=== PATIENT | female | born 1960 | race African-American/Black ===

== ENCOUNTER 2017-12-25 12:46 | Emergency (ER) | payer OTHER ==
[2017-12-25 13:06] VITALS: BP 157/85; PULSE 64; TEMP 98; BMI 24.1
--- NOTE | 2017-12-25 13:34 | PDOC ---
History of Present Illness - General Chief Complaint: Pain, Acute Stated Complaint: LT LEG PAIN, ARM NUMBNESS Time Seen by Provider: 12/25/17 13:32 History Source: Patient Exam Limitations: No Limitations - History of Present Illness Initial Comments: 12/25/17 13:36 Best Contact:[phone] PCP:Dr. Encinas Pmhx: Chronic neck and back pain, hypertension, herniated nuclear pulposus to the low back, pinched nerve Pshx: Total vaginal hysterectomy Allergies: Sulfa/rash FH:N/A Social Hx: Ciarettes/ 5 cigarettes per day Alcohol/ 0 Drugs/ marijuana LMP: [facility] 57-year-old female presents to the emergency department complaining of left- sided neck, low back pain 8 years. Patient states approximately 5 days ago she ran out of Motrin and was feeling 5/10 dull discomfort intermittently radiating down her left arm to her thumb and index finger. Patient was also complaining of low back pain which intermittently goes down her lateral leg but with rest, the pain subsides. Patient states the symptoms has been chronic for many many years. Patient has no new symptoms. As an affect, patient states the pain is a bit better from years ago. Patient denies headache, dizziness, lightheadedness, facial pain/droop, neck stiffness, chest pain, shortness of breath, abdominal pains, extremity numbness or tingling sensation. Patient states she's ambulating and exercising without any difficulties. 12/25/17 13:39 Past History - Past Medical History Allergies/Adverse Reactions: Allergies Allergy/AdvReac Type Severity Reaction Status Date / Time Sulfa (Sulfonamide Allergy Unknown Verified 12/25/17 13:07 Antibiotics) Anemia: No Asthma: No Cancer: No Cardiac Disorders: No CVA: No COPD: No CHF: No Dementia: No Diabetes: No GI Disorders: No Disorders: No HTN: No Hypercholesterolemia: Yes (non compliant) Liver Disease: No Seizures: No Thyroid Disease: No Other medical history: herniated discs. back problems. - Surgical History Abdominal Surgery: Yes (HYSTERECTOMY, tonsilectomy, right hand sx) Appendectomy: Yes Cardiac Surgery: No Cholecystectomy: No Lung Surgery: No Neurologic Surgery: No Orthopedic Surgery: (RIGHT HAND SX) - Immunization History Immunization Up to Date: No - Suicide/Smoking/Psychosocial Hx Smoking History: Current every day smoker Have you smoked in the past 12 months: No Number of Cigarettes Smoked Daily: 10 Information on smoking cessation initiated: No Hx Alcohol Use: No Drug/Substance Use Hx: No Substance Use Type: Cocaine, Marijuana Hx Substance Use Treatment: No Review of Systems - Review of Systems Able to Perform ROS?: Yes Comments:: 12/25/17 13:35 CONSTITUTIONAL: Absent: fever, chills, diaphoresis, generalized weakness, malaise, loss of appetite HEENT: Absent: rhinorrhea, nasal congestion, throat pain, throat swelling, difficulty swallowing, mouth swelling, ear pain, eye pain, visual Changes CARDIOVASCULAR: Absent: chest pain, loss of consciousness, palpitations, irregular heart rate, peripheral edema RESPIRATORY: Absent: cough, shortness of breath, dyspnea with exertion, orthopnea, wheezing, stridor, hemoptysis GASTROINTESTINAL: Absent: abdominal pain, abdominal distension, nausea, vomiting, diarrhea, constipation, melena, hematochezia GENITOURINARY: Absent: dysuria, frequency, urgency, hesitancy, hematuria, flank pain, genital pain MUSCULOSKELETAL: +Chronic left sided neck pain Chronic left sided back pain with sciatica Absent: myalgia, arthralgia, joint swelling SKIN: Absent: rash, itching, pallor HEMATOLOGIC/IMMUNOLOGIC: Absent: easy bleeding, easy bruising, lymphadenopathy, frequent infections ENDOCRINE: Absent: unexplained weight gain, unexplained weight loss, heat intolerance, cold intolerance NEUROLOGIC: Absent: headache, focal weakness or paresthesias, dizziness, unsteady gait, seizure, mental status changes, bladder or bowel incontinence PSYCHIATRIC: Absent: anxiety, depression, suicidal or homicidal ideation, hallucinations. Is the patient limited Cambodian proficient: No *Physical Exam - Vital Signs Last Vital Signs Temp Pulse Resp BP Pulse Ox 98.0 F 64 18 157/85 100 12/25/17 13:00 12/25/17 13:00 12/25/17 13:00 12/25/17 13:00 12/25/17 13:00 - Physical Exam Comments: 12/25/17 13:35 GENERAL: Well developed, well nourished. Awake and alert. No acute distress. HEENT: Normocephalic, atraumatic. PERRLA, EOMI. No conjunctival pallor. Sclera are non- icteric. Moist mucous membranes. Oropharynx is clear. NECK: Supple. Full ROM. No JVD. Carotid pulses 2+ and symmetric, without bruits. No thyromegaly. No lymphadenopathy. CARDIOVASCULAR: Regular rate and rhythm. No murmurs, rubs, or gallops. Distal pulses are 2+ and symmetric. PULMONARY: No evidence of respiratory distress. Lungs clear to auscultation bilaterally. No wheezing, rales or rhonchi. ABDOMINAL: Soft. Non-tender. Non-distended. No rebound or guarding. No organomegaly. Normoactive bowel sounds. MUSCULOSKELETAL Normal range of motion at all joints. No bony deformities or tenderness. No CVA tenderness. EXTREMITIES: Neg SLR No cyanosis. No clubbing. No edema. No calf tenderness. SKIN: Warm and dry. Normal capillary refill. No rashes. No jaundice. NEUROLOGICAL: Alert, awake, appropriate. Cranial nerves 2-12 intact. No deficits to light touch and temperature in face, upper extremities and lower extremities. No motor deficits in the in face, upper extremities and lower extremities. Normoreflexic in the upper and lower extremities. Normal speech. Toes are down- going bilaterally. Gait is normal without ataxia. PSYCHIATRIC: Cooperative. Good eye contact. Appropriate mood and affect. *DC/Admit/Observation/Transfer Diagnosis at time of Disposition: Chronic neck and back pain - Discharge Dispostion Disposition: HOME Condition at time of disposition: Stable Decision to Admit order: No - Referrals Referrals: Nohemi Cruz MD [Primary Care Provider] - Rhett Enamorado MD [Staff Physician] - - Patient Instructions Printed Discharge Instructions: Managing Chronic Low Back Pain, DI for Chronic Neck Pain Additional Instructions: Ice; 20 mins on alternating with 20 mins off for 48 hours while awake. Rest Follow up with your orthopedic surgeon or the one listed on the discharge form. Return to the ER for severe/persistent/worsening symptoms, extremity numbness/ tingling sensation. - Post Discharge Activity
== END 2017-12-25 13:40 | disposition home or self-care (01) ==
LOC: JERFT 12:46
DX: M54.2 Cervicalgia (principal); M54.9 Dorsalgia, unspecified; G89.29 Other chronic pain; I10 Essential (primary) hypertension; M51.26 Other intervertebral disc displacement, lumbar region
CPT/HCPCS: 99281-25

== ENCOUNTER 2019-01-27 15:14 | Emergency (ER) | payer OTHER ==
[2019-01-27 15:34] VITALS: BP 141/81; PULSE 67; TEMP 98.1; BMI 20.6
--- NOTE | 2019-01-27 15:35 | PDOC ---
Rapid Medical Evaluation Chief Complaint: Eye Problem Time Seen by Provider: 01/27/19 15:30 Medical Evaluation: Allergies Allergy/AdvReac Type Severity Reaction Status Date / Time Sulfa (Sulfonamide Allergy Unknown Verified 12/25/17 13:07 Antibiotics) 01/27/19 15:33 Patient c/o: feels as something in her left eye, denies visual changes or injury /contact use to eye Patient on brief exam: mild scleral erythema, + tearing Patient ordered for: none Patient to proceed to the ED Discharge Disposition - Diagnosis Irritation of eye - Discharge Dispostion Condition at time of disposition: Stable - Referrals - Patient Instructions - Post Discharge Activity
[2019-01-27] MEDS ORDERED: FLUORESCEIN NA 1 EA STRIP OS ONE (15:49)
--- NOTE | 2019-01-27 16:02 | PDOC ---
History of Present Illness - General Chief Complaint: Eye Problem Stated Complaint: LT. EYE PAIN Time Seen by Provider: 01/27/19 15:30 History Source: Patient Exam Limitations: Clinical Condition - History of Present Illness Initial Comments: 01/27/19 15:57 Past medical history present with complaint of left eye foreign body sensation since yesterday and patient does not know what went into her eye area and denies any trauma or injury to eye. Patient report corrective lense use but denies contact lenses use. Denies blurry vision or change in vision Timing/Duration: 24 hours Past History - Past Medical History Allergies/Adverse Reactions: Allergies Allergy/AdvReac Type Severity Reaction Status Date / Time Sulfa (Sulfonamide Allergy Unknown Verified 12/25/17 13:07 Antibiotics) Home Medications: Ambulatory Orders Amlodipine Besylate [Norvasc -] 5 mg PO DAILY 12/25/17 Atorvastatin Ca [Lipitor] 20 mg NR ASDIR 12/25/17 Gabapentin 300 mg PO ASDIR 12/25/17 Ofloxacin 0.3% Ophth Soln [Ocuflox -] 2 drop OP Q6H 5 Days #1 bottle 01/27/19 Anemia: No Asthma: No Cancer: No Cardiac Disorders: No CVA: No COPD: No CHF: No Dementia: No Diabetes: No GI Disorders: No Disorders: No HTN: No Hypercholesterolemia: Yes (non compliant) Liver Disease: No Seizures: No Thyroid Disease: No - Surgical History Abdominal Surgery: Yes (HYSTERECTOMY, tonsilectomy, right hand sx) Appendectomy: Yes Cardiac Surgery: No Cholecystectomy: No Lung Surgery: No Neurologic Surgery: No Orthopedic Surgery: (RIGHT HAND SX) - Immunization History Immunization Up to Date: No - Suicide/Smoking/Psychosocial Hx Smoking History: Current every day smoker Have you smoked in the past 12 months: Yes Number of Cigarettes Smoked Daily: 5 Information on smoking cessation initiated: No Hx Alcohol Use: No Drug/Substance Use Hx: No Substance Use Type: Cocaine, Marijuana Hx Substance Use Treatment: No Review of Systems - Review of Systems Able to Perform ROS?: Yes Is the patient limited Austrian proficient: No Constitutional: No: Fever, Night Sweats HEENTM: Yes: Symptoms Reported, See HPI, Eye Pain (left eye), Tearing (left eye) . No: Recent change in vision, Double Vision, Cataracts Respiratory: No: Symptoms reported Cardiac (ROS): No: Symptoms Reported ABD/GI: No: Nausea, Vomiting Neurological: No: Headache, Dizziness All Other Systems: Reviewed and Negative *Physical Exam - Vital Signs Last Vital Signs Temp Pulse Resp BP Pulse Ox 98.1 F 67 16 141/81 100 01/27/19 15:30 01/27/19 15:30 01/27/19 15:30 01/27/19 15:30 01/27/19 15:30 - Physical Exam Comments: 01/27/19 16:03 GENERAL: Well developed, well nourished. Awake and alert. No acute distress. HEENT: tiny less than 1mm superficial left corneal abrasion. no foreign object in left eye with exam with fluorescein stain. normal visual acuity. Normocephalic, atraumatic. PERRLA, EOMI. No conjunctival pallor. Sclera are non- icteric. Moist mucous membranes. Oropharynx is clear. NECK: Supple. Full ROM. CARDIOVASCULAR: Regular rate and rhythm. No murmurs, rubs, or gallops. Distal pulses are 2+ and symmetric. PULMONARY: No evidence of respiratory distress. MUSCULOSKELETAL Normal range of motion at all joints. SKIN: Warm and dry. Normal capillary refill. No rashes. NEUROLOGICAL: Alert, awake, appropriate. Gait is normal without ataxia. PSYCHIATRIC: Cooperative. Good eye contact. Appropriate mood General Appearance: Yes: Nourished, Appropriately Dressed. No: Apparent Distress Medical Decision Making - Medical Decision Making 01/27/19 16:01 Past medical history present with complaint of left eye foreign body sensation since yesterday and patient does not know what went into her eye area and denies any trauma or injury to eye. Patient report corrective lense use but denies contact lenses use. Denies blurry vision or change in vision Exam significant for tiny superficial corneal abrasion on exam with fluorescein stain. no foreign body is seen on exam. Left eye irrigated at eyewash station. Patient report improved symptoms. Stable for discharge on ofloxacin eye drop with ophthalmology follow-up *DC/Admit/Observation/Transfer Diagnosis at time of Disposition: Irritation of eye Left cornea abrasion Qualifiers: Encounter type: initial encounter Qualified Code(s): S05.02XA - Injury of conjunctiva and corneal abrasion without foreign body, left eye, initial encounter - Discharge Dispostion Disposition: HOME Condition at time of disposition: Stable Decision to Admit order: No - Prescriptions Prescriptions: Ofloxacin 0.3% Ophth Soln [Ocuflox -] 2 drop OP Q6H 5 Days #1 bottle - Referrals Referrals: Bridger Giles MD [Staff Physician] - - Patient Instructions Printed Discharge Instructions: DI for Corneal Abrasion Additional Instructions: use eye drops as prescribed. Follow-up with referred ophthalmology if no improvement in 3 days - Post Discharge Activity
== END 2019-01-27 16:10 | disposition home or self-care (01) ==
LOC: JERFT 15:14
PROC: 3E1CX8Z Irrigation of Eye using Irrigating Substance (ICD-10-PCS; principal; 2019-01-27)
DX: S05.02XA Injury of conjunctiva and corneal abrasion without foreign body, left eye, initial encounter (principal); X58.XXXA Exposure to other specified factors, initial encounter; Y93.89 Activity, other specified; Y92.89 Other specified places as the place of occurrence of the external cause; Y99.8 Other external cause status
CPT/HCPCS: 66999; 99281-25

== ENCOUNTER 2025-05-07 05:26 | Day surgery (SDC) | payer OTHER ==
[2025-05-04 16:03] VITALS: BMI 20.8
[2025-05-07] MEDS ORDERED: BUPIVACAINE HCL/PF 0.75% 10 ML VIAL ONE (07:14)
[2025-05-07] MEDS ORDERED: LIDOCAINE HCL/PF 1% SDV 5ML VIAL ONE (07:15)
[2025-05-07] MEDS ORDERED: ACETAMINOPHEN 500 MG TABLET (FP) PO PRN (08:44)
[2025-05-07 09:06] VITALS: BP 115/75; PULSE 67; RESP 20; TEMP 97.3
== END 2025-05-07 09:05 | disposition home or self-care (01) ==
LOC: JASU-SURG 05:26
PROVIDERS: ATTEND Pain Medicine Pain Medicine
PROC: 3E0T33Z Introduction of Anti-inflammatory into Peripheral Nerves and Plexi, Percutaneous Approach (ICD-10-PCS; 2025-05-07)
PROC: 3E0T3BZ Introduction of Anesthetic Agent into Peripheral Nerves and Plexi, Percutaneous Approach (ICD-10-PCS; principal; 2025-05-07 08:28)
DX: M47.816 Spondylosis without myelopathy or radiculopathy, lumbar region (principal)
CPT/HCPCS: 76000-TC-FY

== ENCOUNTER 2025-05-28 06:17 | Day surgery (SDC) | payer OTHER ==
[2025-05-28] MEDS ORDERED: ACETAMINOPHEN 500 MG TABLET (FP) PO PRN (09:11)
[2025-05-28 09:58] VITALS: RESP 20
[2025-05-28] MEDS: LIDOCAINE HCL 1% PRESERVATIVE FREE - 30ML VIAL IJ ONE ×2 (10:54)
[2025-05-28] MEDS: BUPIVACAINE HCL/PF 0.75% 10 ML VIAL NR ONE ×2 (10:54)
[2025-05-28 11:18] VITALS: BP 151/54; PULSE 58; TEMP 97.9
== END 2025-05-28 11:19 | disposition home or self-care (01) ==
LOC: JASU-SURG 06:17
PROVIDERS: ATTEND Pain Medicine Pain Medicine
PROC: 3E0T33Z Introduction of Anti-inflammatory into Peripheral Nerves and Plexi, Percutaneous Approach (ICD-10-PCS; 2025-05-28)
PROC: 3E0T3BZ Introduction of Anesthetic Agent into Peripheral Nerves and Plexi, Percutaneous Approach (ICD-10-PCS; principal; 2025-05-28 10:41)
DX: M47.816 Spondylosis without myelopathy or radiculopathy, lumbar region (principal)
CPT/HCPCS: 76000-TC-FY